=== PATIENT | male | born 1970 | race Caucasian/White ===

== ENCOUNTER 2018-09-08 14:16 | Inpatient (IN) | payer OTHER ==
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
[~2018-09-08 14:16] MED LIST: fentaNYL 100 MCG/2 ML INJ IVP ONE; fentaNYL 100 MCG/2 ML INJ ONE
[2018-09-08] MEDS ORDERED: NS 1,000 ML IV ONE (14:19)
[2018-09-08] MEDS ORDERED: IOPAMIDOL (ISOVUE 370) 100 ML BTL IV ONE (14:29)
[2018-09-08 14:30] LABS: PLATELET COUNT 350 10^3/uL (150-400)
[2018-09-08 14:48] LABS: INR 1.11 (0.83-1.16); PROTIME(PATIENT) 14.5 SEC (12.0-15.0)
[2018-09-08] MEDS ORDERED: fentaNYL 100 MCG/2 ML INJ IVP ONE (16:06)
[2018-09-08] MEDS ORDERED: HYDROmorphONE/DILAUDID 2 MG/ML INJ IVP ONE (16:22)
[2018-09-08] MEDS ORDERED: LR 1,000 ML IV ONE (16:42)
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
[2018-09-08] MEDS ORDERED: ceFAZolin 2 GM in D5W 100 ML IV ONE (16:48)
[2018-09-08] MEDS ORDERED: ceFAZolin 2 GM/DEXTROSE 100 ML IV ONE (16:48)
[2018-09-08] MEDS ORDERED: ONDANSETRON 4 MG/2 ML VIAL ONE (16:49)
[2018-09-08] MEDS ORDERED: CEFAZOLIN 2 GM/DEXTROSE/100 ML BAG IV ONE (16:50)
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
[2018-09-08] MEDS ORDERED: fentaNYL 250 MCG/5 ML INJ ONE (16:58)
[2018-09-08] MEDS ORDERED: PROPOFOL/EMULSION 500 MG/50 ML BOTTLE IV ONE (16:58)
[2018-09-08] MEDS ORDERED: ROCURONIUM 100 MG/10 ML VIAL ONE (16:59)
[2018-09-08] MEDS ORDERED: BUPIVACAINE 0.5% 30 ML SDV ONE (17:22)
[2018-09-08] MEDS ORDERED: SUGAMMADEX SODIUM 200 MG/2 ML VIAL IVP ONE (18:01)
--- NOTE | 2018-09-08 18:01 | PDGENHP ---
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 Niko fx. min displaced will follow along for orthopedic secondary survey when able in surgery currently
[2018-09-08] MEDS ORDERED: fentaNYL 100 MCG/2 ML INJ ONE ×2 (18:16→18:39)
[2018-09-08] MEDS ORDERED: ONDANSETRON 4 MG/2 ML VIAL IVP PRN ×2 (18:24→18:31)
[2018-09-08] MEDS ORDERED: NALOXONE HCL 0.4 MG/ML INJ IVP PRN ×2 (18:24→18:42)
[2018-09-08] MEDS ORDERED: MEPERIDINE 25 MG/0.5 ML AMP IVP PRN (18:24)
--- NOTE | 2018-09-08 18:29 | POSTANESTH ---
Post Anesthetic Evaluation Cardiovascular Status: Normal, Stable Respiratory Status: Normal, Stable Level of Consciousness/Mental Status: Can Participate in Eval Pain Control: Adequate, Prn Tx Ordered Nausea/Vomiting Control: Adequate, Prn Tx Ordered Complications Possibly Related to Anesthesia: None Noted
[2018-09-08] MEDS ORDERED: TEMAZEPAM 15 MG CAP PO PRN (18:31)
[2018-09-08] MEDS ORDERED: METOCLOPRAMIDE 10 MG/2 ML VIAL IVP PRN (18:31)
--- NOTE | 2018-09-08 18:31 | POSTOPPROG ---
Post Op Note Date of Operation: 09/08/18 Surgeon: Jim Wasserman Hot Saw Operator: Zoltan Freeman PA-C Anesthesia: GET(General Endotracheal) Pre-op Diagnosis: free air/peritonitis Post-op Diagnosis: traumatic enterotomy Procedure: ex-lap, repair enterotomy Findings: jejunal perforation Inf/Abcess present in the surg proc area at time of surgery?: Yes Depth: Organ Space EBL: Minimal Specimen(s): none
[2018-09-08] MEDS: fentaNYL 100 MCG/2 ML INJ IVP PRN ×2 (18:42→18:57)
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
[2018-09-08] MEDS ORDERED: LR 1,000 ML IV SCH (19:00)
[2018-09-08] MEDS ORDERED: HYDROmorphONE/DILAUDID 2 MG/ML INJ ONE (19:07)
[2018-09-08] MEDS: HYDROmorphONE/DILAUDID 2 MG/ML INJ IVP PRN ×2 (19:11→19:22)
[2018-09-08] MEDS: HYDROCODONE/APAP 5/325 TAB PO PRN (20:27)
[2018-09-09] MEDS: KETOROLAC 15 MG/1 ML SDV IVP SCH ×3 (00:08→13:04)
[2018-09-09] MEDS: LORazepam 2 MG/ML INJ IVP PRN ×2 (00:22→21:39)
[2018-09-09] MEDS: HYDROCODONE/APAP 5/325 TAB PO PRN ×2 (08:47→12:57)
[2018-09-09] MEDS: PANTOPRAZOLE SODIUM 40 MG TAB PO SCH (08:47)
[2018-09-09] MEDS ORDERED: LACTULOSE 20 GM/30 ML UDCUP PO PRN (09:24)
[2018-09-09] MEDS ORDERED: POLYETHYLENE GLYCOL 3350 17 GM PKT PO PRN (09:24)
[2018-09-09] MEDS ORDERED: BISACODYL 10 MG SUPP PR PRN (09:24)
[2018-09-09] MEDS ORDERED: MAGNESIUM HYDROXIDE 30 ML UDCUP PO PRN (09:24)
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
[2018-09-09] MEDS ORDERED: KETOROLAC 30 MG/1 ML SDV IVP PRN (12:03)
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
[2018-09-09] MEDS: SENNOSIDES/DOCUSATE SODIUM TAB PO SCH (21:19)
[2018-09-10] MEDS: HYDROCODONE/APAP 5/325 TAB PO PRN ×2 (05:19→16:11)
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
[2018-09-10 08:12] VITALS: BP 112/66
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
[2018-09-10] MEDS: PANTOPRAZOLE SODIUM 40 MG TAB PO SCH (10:52)
[2018-09-10] MEDS: SENNOSIDES/DOCUSATE SODIUM TAB PO SCH (10:54)
[2018-09-10] MEDS ORDERED: IBUPROFEN 800 MG TAB PO SCH (14:00)
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
--- NOTE | 2018-09-10 15:57 | ASMTLACE ---
ADRIANE Length of stay for Answers: 3 days current admission Acuity / Level of Answers: Yes Care: Did the patient have an inpatient admission? # of Emergency department Answers: 1-2 visits in the last 6 months Score: 7 Date Signed: 09/10/2018 03:57 PM Electronically Signed By:ARUNA Argueta
--- NOTE | 2018-09-10 15:58 | ASMTCMCOM ---
CM Note CM Note Notes: Pt medically stable for d/c with family support. OT rec home, PT rec home/outpatient, [facility] rec follow up call. Pt to return to [place]. No CM d/c needs identified. Date Signed: 09/10/2018 03:58 PM Electronically Signed By:ARUNA Argueta
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
== END 2018-09-10 17:59 | disposition home or self-care (01) | DRG 330 ==
LOC: F3N 19:50
PROVIDERS: ADMIT Surgery; ATTEND Surgery
PROC: 0DQA0ZZ Repair Jejunum, Open Approach (ICD-10-PCS; principal; 2018-09-08 17:00)
PROC: 2W35X3Z Immobilization of Back using Brace (ICD-10-PCS; 2018-09-09)
DX: S36.438A Laceration of other part of small intestine, initial encounter (principal); S92.001A Unspecified fracture of right calcaneus, initial encounter for closed fracture; S32.040A Wedge compression fracture of fourth lumbar vertebra, initial encounter for closed fracture; S92.191A Other fracture of right talus, initial encounter for closed fracture; V44.6XXA Car passenger injured in collision with heavy transport vehicle or bus in traffic accident, initial encounter; Z23 Encounter for immunization
CPT/HCPCS: 82435-PO; 82565-PO; 82947-PO; 84132-PO; 84295-PO; 84520-PO; 85014-PO; 92523-GN; 96374; 97116-GP; 97162-GP; 97165-GO; 97530-GP; 97535-GO; G0008; J0690; J1170; J1885; J2060; J2405; J2704; J3010; Q9967